=== PATIENT | female | born 1940 | race Caucasian/White ===

== ENCOUNTER 2017-05-13 12:27 | Emergency (ER) | payer MEDICARE, OTHER ==
[2017-05-13] MEDS ORDERED: Adacel Vial IM ONE ×2 (13:02→13:06)
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
[2017-05-13 13:48] VITALS: BP 141/63; PULSE 84; O2SAT 96
== END 2017-05-13 14:43 | disposition home or self-care (01) ==
LOC: ED 12:27
DX: S01.312A Laceration without foreign body of left ear, initial encounter (principal); W06.XXXA Fall from bed, initial encounter; Y92.092 Bedroom in other non-institutional residence as the place of occurrence of the external cause
CPT/HCPCS: 36000; 90471; 90715; 99283